=== PATIENT | male | born 1960 | race Caucasian/White ===

== ENCOUNTER 2016-11-26 10:23 | Emergency (ER) | payer OTHER ==
[~2016-11-26 10:23] MED LIST: ASAB PO; METAMUCIL CAN7 OZ PO; NASONEX NAS; RANITIDINE300 MG PO; ZEGERID1 CA1 PO; ZOCOR40 PO
== END 2016-11-26 10:25 | disposition home or self-care (01) ==
LOC: ER 10:23
DX: H02.9 Unspecified disorder of eyelid (principal); Z79.82 Long term (current) use of aspirin; Z79.899 Other long term (current) drug therapy
CPT/HCPCS: 99283; A9270-GY

== ENCOUNTER 2017-01-17 10:15 | Emergency (ER) | payer OTHER | END 2017-01-17 12:00 | disposition home or self-care (01) | LOC: ER 10:15 | DX: H00.015 Hordeolum externum left lower eyelid (principal); F17.200 Nicotine dependence, unspecified, uncomplicated; Z79.82 Long term (current) use of aspirin; Z79.899 Other long term (current) drug therapy | CPT/HCPCS: 99283 ==